=== PATIENT | female | born 1990 | race Two or more races ===

== ENCOUNTER 2019-08-22 17:23 | Emergency (ER) | payer MEDICAID ==
[~2019-08-22] VITALS: Ht 144.8 cm; Wt 37.1 kg
[~2019-08-22 17:23] MED LIST: PRENATAL VIT
[2019-08-22 17:53] VITALS: BP 131/69
== END 2019-08-22 19:49 | disposition left against medical advice (07) ==
LOC: ER 17:23
DX: Z53.21 Procedure and treatment not carried out due to patient leaving prior to being seen by health care provider (principal)